=== PATIENT | female | born 1975 | race Caucasian/White ===

== ENCOUNTER 2017-06-26 03:15 | Emergency (ER) | payer BC ==
--- NOTE | 2017-06-26 03:37 | PDOC ---
History of Present Illness - General Chief Complaint: Pain, Acute Stated Complaint: LWR ABD PAIN Time Seen by Provider: 06/26/17 03:36 Past History - Travel Traveled outside of the country in the last 30 days: No Close contact w/someone who was outside of country & ill: No - Past Medical History Allergies/Adverse Reactions: Allergies Allergy/AdvReac Type Severity Reaction Status Date / Time No Known Allergies Allergy Verified 06/26/17 03:38 Home Medications: Ambulatory Orders Docusate Sodium [Colace -] 100 mg PO BID #14 capsule 06/26/17 Polyethylene Glycol 3350 [Miralax (For Bowel Prep) -] 17 gm PO DAILY #1 bottle 06/26/17 Anemia: No Asthma: No Cancer: No Cardiac Disorders: No Hx Myocardial Infarction: No CVA: No COPD: No CHF: No DVT: No Dementia: No Diabetes: No Dialysis: No GI Disorders: No Disorders: No HTN: No Hypercholesterolemia: No HIV: No Kidney Stones: No Liver Disease: No Psychiatric Problems: No Seizures: No Thyroid Disease: No Lung CA: No Comment:: 06/26/17 04:44 Pt had a normal colonoscopy last year. Not sure who the doctor was. Pt used to go to the clinic. But she states that her PMD left the clinic - Surgical History Abdominal Surgery: No Appendectomy: No Cardiac Surgery: No Cholecystectomy: No Gastric Stapling: No GI Surgery: No Lung Surgery: No Neurologic Surgery: No Orthopedic Surgery: No Review of Systems - Review of Systems Constitutional: Yes: Loss of Appetite. No: Symptoms Reported, See HPI, Chills, Diaphoresis, Fever, Malaise, Night Sweats, Weakness, Weight Stable, Unintentional Wgt. Loss, Unexplained wgt Loss, Other HEENTM: No: Symptoms Reported, See HPI, Eye Pain, Blurred Vision, Tearing, Recent change in vision, Double Vision, Cataracts, Ear Pain, Ocular Prothesis, Ear Discharge, Nose Pain, Nose Congestion, Tinnitus, Nose Bleeding, Hearing Loss , Throat Pain, Throat Swelling, Mouth Pain, Dental Problems, Difficulty Swallowing, Mouth Swelling, Other Cardiac (ROS): No: Symptoms Reported, See HPI, Chest Pain, Edema, Irregular Heart Rate, Lightheadedness, Palpitations, Syncope, Chest Tightness, Other ABD/GI: Yes: Abdominal cramping. No: Symptoms Reported, See HPI, Abdominal Distended, Abd. Pain w/ defecation, Blood Streaked Bowels, Constipated, Diarrhea , Difficulty Swallowing, Nausea, Poor Appetite, Poor Fluid Intake, Rectal Bleeding, Vomiting, Indigestion, Tarry Stools, Other : No: Symptoms Reported, See HPI, Burning, Dysuria, Discharge, Frequency, Flank Pain, Hematuria, Incontinence, Pain, Urgency, Testicular Mass, Testicular Swelling, Lesions, Testicular Pain, Other Musculoskeletal: No: Symptoms Reported, See HPI, Back Pain, Gout, Joint Pain, Joint Swelling, Muscle Pain, Muscle Weakness, Neck Pain, Joint Stiffness, Other Integumentary: No: Symptoms Reported, See HPI, Bruising, Change in Color, Change in Hair/Nails, Dryness, Erythema, Flushing, Lesions, Lumps, Pallor, Pruritus, Rash, Sweating, Other Neurological: No: Symptoms reported, See HPI, Headache, Numbness, Paresthesia, Pre-Existing Deficit, Seizure, Tingling, Tremors, Weakness, Unsteady Gait, Ataxia, Dizziness, Other Psychiatric: No: Anxiety, Depression, Frequent Crying, Stressors, Sleep Pattern Change, Emotional Problems, Mood Swings, Change in Appetite, Other Endocrine: No: Symptoms Reported, See HPI, Excessive Sweating, Flushing, Intolerance to Cold, Intolerance to Heat, Increased Hunger, Increased Thirst, Increased Urine, Unexplained Weight Gain, Unexplained Weight Loss, Change in Weight, Other *Physical Exam - Physical Exam General Appearance: Yes: Nourished, Appropriately Dressed. No: Apparent Distress HEENT: positive: EOMI, KEL, Normal ENT Inspection, Normal Voice, Symmetrical Neck: positive: Supple Respiratory/Chest: positive: Lungs Clear, Normal Breath Sounds Cardiovascular: positive: Regular Rhythm, Regular Rate, S1, S2 Gastrointestinal/Abdominal: positive: Tender (suprapubic; but no dysuria) Musculoskeletal: positive: Normal Inspection. negative: CVA Tenderness Extremity: positive: Normal Capillary Refill, Normal Inspection, Normal Range of Motion Integumentary: positive: Normal Color, Dry, Warm Neurologic: positive: plant operator helper II-XII NML intact, Fully Oriented, Alert, Normal Mood/ Affect, Normal Response, Motor Strength 01/28 ED Treatment Course - LABORATORY CBC & Chemistry Diagram: 06/26/17 05:00 06/26/17 05:00 Medical Decision Making - Medical Decision Making 06/26/17 04:46 Pt comes with on and off lower abd pain. She is able to eat normally but states that she is not hungry. She has no alteraltion of her bowel or bladder habits and no blood in her stool and no blood in urine. No pain with urination or defecation; no fever and no chills, no rebound and no guarding. She had a normal colonoscopy last year. She had an abnormal pap smear and now she is scheduled for colposcopy. She has 2 kids. No c sections. She had a normal menses that ended on the 9th of last month and for the last 2 days she has had some vag spotting. She appears well. She is in no distress. She has gassy abd sounds ane her pain is likely due to gas. However, pt has no labs on file and she has never been worked up here. I will check basic labs and a CT scan of the abd and pelvis to r/o colitis, diverticulitis, gas constipation, fat hernia. 06/26/17 06:18 All labs are normal; SHe has 1+ blood in the urine, but she is having vaginal spotting. 06/26/17 07:09 Pt will be signed out to the day attending. Her CT scan is pending. *DC/Admit/Observation/Transfer Diagnosis at time of Disposition: Constipation, Fatty (change of) liver, not elsewhere classified, Abdominal pain - Discharge Dispostion Disposition: HOME Condition at time of disposition: Stable - Prescriptions Prescriptions: Docusate Sodium [Colace -] 100 mg PO BID #14 capsule Polyethylene Glycol 3350 [Miralax (For Bowel Prep) -] 17 gm PO DAILY #1 bottle - Referrals Referrals: Roni Shook MD [Staff Physician] - Margarita Purdy MD [Primary Care Provider] - - Patient Instructions Printed Discharge Instructions: DI for Constipation, DI for Acute Abdomen Additional Instructions: Please follow up with GI and your CABIN SERVICE AGENT. Please take all meds as prescribed. Please follow up with your PMD. Please return to the Ed with any further concerns.
[2017-06-26 03:38] VITALS: BMI 27.3
[2017-06-26 04:19] LABS: URINE APPEARANCE CLEAR; URINE BILIRUBIN NEGATIVE (NEGATIVE); URINE BLOOD 1+ (NEGATIVE); URINE COLOR YELLOW; URINE GLUCOSE (UA) NEGATIVE (NEGATIVE); URINE KETONE NEGATIVE (NEGATIVE); URINE LEUK ESTERASE NEGATIVE (NEGATIVE); URINE NITRITE NEGATIVE (NEGATIVE); URINE PROTEIN NEGATIVE (NEGATIVE); URINE UROBILINOGEN NEGATIVE mg/dL (0.2-1.0)
[2017-06-26] MEDS ORDERED: NITROFURANTOIN MACROCRYSTAL 50 MG CAPSULE (FP) PO SCH (04:30)
[2017-06-26] MEDS ORDERED: FAMOTIDINE 20 MG/50 ML IVPB 50 ML IVPB ONE ×2 (04:40→05:05)
[2017-06-26 04:48] LABS: URINE HYALINE CAST 3 /lpf; URINE MUCUS RARE; URINE RBC 1 /hpf (0-3); URINE WBC 1 /hpf (3-5)
[2017-06-26 05:51] LABS: BASOPHIL 0.8 % (0-2.0); EOSINOPHIL 3.6 % (0-4.5); MCH 30.5 pg (25.7-33.7); MEAN CELL VOLUME 87.2 fl (80-96); MEAN PLT VOLUME 8.5 fl (7.5-11.1); NEUTROPHILS 61.8 % (42.8-82.8); PLATELET COUNT 380 K/MM3 (134-434); RDW 12.9 % (11.6-15.6); WHITE BLOOD COUNT 8.3 K/mm3 (4.0-10.0)
[2017-06-26 06:03] LABS: ANION GAP 7 (8-16); CALCIUM 9.1 mg/dL (8.5-10.1); CO2 28 mmol/L (21-32); CREATININE 0.6 mg/dL (0.55-1.02); GLUCOSE,RANDOM 99 mg/dL (74-106)
[2017-06-26 06:04] LABS: ALK PHOS 87 U/L (45-117); AMYLASE 24 U/L (25-115); BILIRUBIN,TOTAL 0.3 mg/dL (0.2-1.0); SGOT/AST 25 U/L (15-37); SGPT/ALT 58 U/L (12-78); TOT PROT 7.8 g/dl (6.4-8.2)
--- NOTE | 2017-06-26 07:21 | PDOC ---
*Physical Exam - Vital Signs Last Vital Signs Temp Pulse Resp BP Pulse Ox 98.1 F 77 18 123/90 98 06/26/17 03:37 06/26/17 03:37 06/26/17 03:37 06/26/17 03:37 06/26/17 03:37 - Physical Exam Comments: 06/26/17 07:26 Gen: aaox3, nad abd: soft, nd/ mild lower pelvis ttp, no rebound or guarding ambulatory with a steady gait. ED Treatment Course - LABORATORY CBC & Chemistry Diagram: 06/26/17 05:00 06/26/17 05:00 - ADDITIONAL ORDERS Additional order review: Laboratory Results 06/26/17 06/26/17 06/26/17 05:00 04:07 04:07 Sodium 139 Potassium 4.3 Chloride 104 Carbon Dioxide 28 Anion Gap 7 L BUN 12 Creatinine 0.6 Creat Clearance w eGFR > 60 Random Glucose 99 Calcium 9.1 Total Bilirubin 0.3 AST 25 ALT 58 Alkaline Phosphatase 87 Total Protein 7.8 Albumin 4.0 Total Amylase 24 L Lipase 117 Urine Color Yellow Urine Appearance Clear Urine pH 5.0 Urine Protein Negative Urine Glucose (UA) Negative Urine Ketones Negative Urine Blood 1+ H Urine Nitrite Negative Urine Bilirubin Negative Urine Urobilinogen Negative Urine RBC 1 Urine WBC 1 Ur Epithelial Cells Rare Hyaline Casts 3 Urine Mucus Rare Urine HCG, Qual Negative 06/26/17 05:00 RBC 4.31 MCV 87.2 MCHC 35.0 RDW 12.9 MPV 8.5 Neutrophils % 61.8 Lymphocytes % 26.9 Monocytes % 6.9 Eosinophils % 3.6 Basophils % 0.8 - Medications Given in the ED: ED Medications Discontinued Medications Generic Name Dose Route Start Last Admin Trade Name Freq PRN Reason Stop Dose Admin Famotidine/Sodium Chloride 50 mls @ 100 mls/hr 06/26/17 04:40 06/26/17 05:10 Pepcid 20 Mg Premixed Ivpb - IVPB 06/26/17 05:09 100 mls/hr ONCE ONE Administration Nitrofurantoin Macrocrystals 100 mg 06/26/17 04:30 06/26/17 04:34 Macrodantin - PO Not Given ONCE [facility] Medical Decision Making - Medical Decision Making 06/26/17 07:26 a/p: 42yo female with lower abd pain x 2 months -outpt ultrasound did not show acute pelvic path -had abnl pap and told to follow up with CERTIFIED RESPIRATORY THERAPIST for colposcopy -still with pain, no assoc with n/v/d, no change with PO intake or bm -signed out pending ct abd/pelvis 06/26/17 09:15 re-eval: pt abd soft, discussed imaging results with the patient. Pt states she was told she was constipated in the past and did see a gi doc in the past, underwent colonoscopy testing in the past. Pt stable for d/c to home. Will start meds for constipation and give GI followup. all questions answered. Pt verbalizes understanding of all instructions. pt with fatty liver on ct, will also follow with GI for that. *DC/Admit/Observation/Transfer Diagnosis at time of Disposition: Fatty (change of) liver, not elsewhere classified, Abdominal pain Constipation Qualifiers: Constipation type: other constipation type Qualified Code(s): K59.09 - Other constipation; K59.09 - Other constipation - Discharge Dispostion Disposition: HOME Condition at time of disposition: Stable Admit: No - Prescriptions Prescriptions: Docusate Sodium [Colace -] 100 mg PO BID #14 capsule Polyethylene Glycol 3350 [Miralax (For Bowel Prep) -] 17 gm PO DAILY #1 bottle - Referrals Referrals: Margarita Purdy MD [Primary Care Provider] - Roni Shook MD [Staff Physician] - - Patient Instructions Printed Discharge Instructions: DI for Acute Abdomen, DI for Constipation Additional Instructions: Please follow up with GI and your CERTIFIED RESPIRATORY THERAPIST. Please take all meds as prescribed. Please follow up with your PMD. Please return to the Ed with any further concerns. - Post Discharge Activity - Attestations Physician Attestion: 06/26/17 09:20 I, Dr. Lauren Rosario, DO, attest that this document has been prepared under my direction and personally reviewed by me in its entirety. I further attest, that it accurately reflects all work, treatment, procedures and medical decision -making performed by me.
[2017-06-26 07:37] VITALS: BP 122/84; PULSE 70; TEMP 97.4
== END 2017-06-26 09:41 | disposition home or self-care (01) ==
LOC: JER 03:15
PROC: 3E033GC Introduction of Other Therapeutic Substance into Peripheral Vein, Percutaneous Approach (ICD-10-PCS; principal; 2017-06-26)
DX: K59.00 Constipation, unspecified (principal); K76.0 Fatty (change of) liver, not elsewhere classified
CPT/HCPCS: 36415; 74177-TC; 80053; 81003; 81015; 82150; 83690; 84703; 85025; 87086; 99282-25; Q9967

== ENCOUNTER 2019-08-29 10:22 | Day surgery (SDC) | payer BC ==
[2019-08-28 17:41] VITALS: BMI 25.6
[2019-08-29] MEDS ORDERED: MIDAZOLAM HCL 2 MG/2 ML SINGLE DOSE VIAL ONE ×2 (11:44→12:52)
[2019-08-29] MEDS ORDERED: ROPIVACAINE HCL 0.5% 30ML VIAL ONE (12:52)
[2019-08-29] MEDS ORDERED: DEXAMETHASONE SOD PHOSPHATE/PF 10 MG/ML SDV ONE (12:52)
[2019-08-29] MEDS ORDERED: ONDANSETRON 4 MG/2 ML VIAL IVPUSH PRN (14:21)
[2019-08-29] MEDS ORDERED: oxyCODONE HCL 5 MG TABLET PO PRN (14:21)
[2019-08-29] MEDS ORDERED: LACTATED RINGERS SOLUTION 1,000 ML IV SCH (14:30)
[2019-08-29] MEDS ORDERED: PROPOFOL 20 ML ONE (14:54)
[2019-08-29] MEDS ORDERED: DEXAMETHASONE SOD PHOSPHATE 4 MG/1 ML VIAL ONE (15:09)
--- NOTE | 2019-08-29 15:51 | OP ---
DATE OF OPERATION: 08/29/2019 PREOPERATIVE DIAGNOSIS: Right comminuted intra-articular distal radius fracture, highly unstable. POSTOPERATIVE DIAGNOSIS: Right comminuted intra-articular distal radius fracture, highly unstable. PROCEDURES PERFORMED: 1. Open reduction and internal fixation of right comminuted intra-articular displaced distal radius fracture, with internal fixation of 3 or more fragments. 2. Right brachioradialis tenotomy. SURGEON: Michelle Plata MD DEBRIDGING MACHINE OPERATOR: DEANDRA Addison ANESTHESIA: Regional. COMPLICATIONS: None. ESTIMATED BLOOD LOSS: Minimal. INDICATIONS FOR PROCEDURE: The patient is a 44-year-old female with the above findings, indicated for operative treatment. We attempted to perform a closed reduction on her yesterday, which achieved improved results; however, the fracture was found to be high unstable and did not achieve satisfactory reduction. She was indicated for operative treatment. The risks, benefits and alternatives were discussed with her and her at length and proper informed consent was obtained. DESCRIPTION OF PROCEDURE: After proper identification of the patient and correct operative site, the patient was brought to the operating room and placed supine on the table, with all bony prominences well-padded. Sedation and regional anesthesia were given. The right upper extremity was prepped and draped in the usual sterile fashion. A well-padded tourniquet was placed after sterile prep. Esmarch bandage was used to exsanguinate the right upper extremity and tourniquet inflated to 250 mmHg. A longitudinal incision was made over the volar aspect of the wrist in line with the flexor carpi ulnaris tendon. The incision was taken sharply through the skin, with blunt and sharp dissection through the subcutaneous tissues. The flexor carpi radialis tendon along with the contents of the carpal canal were bluntly and gently retracted in an ulnarward direction for the remainder of the procedure. The fracture was found to be highly displaced and comminuted, and had ruptured the majority of the pronator quadratus. The remainder was divided longitudinally and elevated off the distal radius. Multiple intra-articular and extra-articular comminuted fragments were noted, and a brachioradialis tenotomy was necessary to release the radial styloid fragments, and this was done in a subperiosteal fashion. The fracture was then able to be reduced using intrafocal and extrafocal meethods. This was then held with an Acumed Acu-Loc 2 distal radius plate, with distal locking screws and proximal nonlocking screws. This provided secure stable fixation with satisfactory reduction achieved and confirmed in multiple planes radiographically. The distal radioulnar joint and scapholunate intervals were stressed and found to be stable. The wound was irrigated and repaired in layers 4-0 Vicryl and 4-0 nylon sutures. Sterile dressings and a splint were placed. The patient was reversed from anesthesia and brought to the recovery room in stable condition. She tolerated the procedure well. Carmelo Duggan, the administrative assistant receptionist, was integral throughout the procedure. The procedure could not have been performed without a skilled operative administrative assistant receptionist. MICHELLE PLATA M.D. EHSAN/[id number]
[2019-08-29 17:51] VITALS: BP 118/71; PULSE 75; TEMP 98
== END 2019-08-29 16:20 | disposition home or self-care (01) ==
LOC: FASU 10:22
PROVIDERS: ATTEND Orthopaedic Surgery Hand Surgery
PROC: 0PSH04Z Reposition Right Radius with Internal Fixation Device, Open Approach (ICD-10-PCS; principal; 2019-08-29 14:21)
DX: S52.571A Other intraarticular fracture of lower end of right radius, initial encounter for closed fracture (principal); X58.XXXA Exposure to other specified factors, initial encounter; Y93.9 Activity, unspecified; Y92.9 Unspecified place or not applicable; Y99.9 Unspecified external cause status
CPT/HCPCS: 25609; C1713; 73110-TC-RT-FY; 84703

== ENCOUNTER 2023-03-22 04:56 | Day surgery (SDC) | payer OTHER ==
[2023-03-21 11:34] VITALS: BMI 26.9
[2023-03-22 15:31] VITALS: TEMP 97
[2023-03-22 15:33] VITALS: BP 109/64; PULSE 61; RESP 13
== END 2023-03-22 13:38 | disposition home or self-care (01) ==
LOC: JASU-ENDO 04:56
PROVIDERS: ATTEND Student in an Organized Health Care Education/Training Program
PROC: 0DB78ZX Excision of Stomach, Pylorus, Via Natural or Artificial Opening Endoscopic, Diagnostic (ICD-10-PCS; 2023-03-22)
PROC: 0DB68ZX Excision of Stomach, Via Natural or Artificial Opening Endoscopic, Diagnostic (ICD-10-PCS; 2023-03-22)
PROC: 0DB28ZX Excision of Middle Esophagus, Via Natural or Artificial Opening Endoscopic, Diagnostic (ICD-10-PCS; 2023-03-22)
PROC: 0DB38ZX Excision of Lower Esophagus, Via Natural or Artificial Opening Endoscopic, Diagnostic (ICD-10-PCS; principal; 2023-03-22 12:30)
DX: K29.70 Gastritis, unspecified, without bleeding (principal); K21.00 Gastro-esophageal reflux disease with esophagitis, without bleeding
CPT/HCPCS: 81025; 88305-TC; 88342-TC